=== PATIENT | female | born 1970 | race Caucasian/White ===

== ENCOUNTER 2017-04-09 07:21 | Outpatient (CLI) | payer BC, OTHER ==
[2017-04-09 13:32] LABS: BASOPHILS % (AUTO) 0.5 %; EOSINOPHILS # (AUTO) 0.1 10^3/uL (0.0-0.7); HCT - HEMATOCRIT 39.4 % (37.0-47.0); HGB - HEMOGLOBIN 13.4 g/dL (12.0-16.0); LYMPHOCYTES # (AUTO) 1.6 10^3/uL (1.5-3.5); LYMPHOCYTES % (AUTO) 28.5 %; MEAN CORPUSCULAR HEMOGLOBIN 29.7 pg (27.0-31.0); MEAN CORPUSCULAR HGB CONC 33.9 g/dL (32.0-36.0); MEAN CORPUSCULAR VOLUME 87.7 fL (81.0-99.0); MONOCYTES # (AUTO) 0.5 10^3/uL (0.0-1.0); MONOCYTES % (AUTO) 9.3 %; NEUTROPHILS # (AUTO) 3.4 10^3/uL (1.5-6.6); NEUTROPHILS % (AUTO) 60.7 %; RED CELL DISTRIBUTION WIDTH 14.4 % (12.0-15.0); UNCORRECTED WHITE BLOOD COUNT 5.7 x10^3/uL; WHITE BLOOD COUNT 5.7 x10^3/uL (4.8-10.8)
[2017-04-09 13:57] LABS: ALBUMIN/GLOBULIN RATIO 1.6 (1.0-2.2); BILIRUBIN,TOTAL 0.4 mg/dL (0.2-1.0); BUN - BLOOD UREA NITROGEN 13 mg/dL (6-20); CALCIUM 9.4 mg/dL (8.5-10.3); CARBON DIOXIDE - CO2 27 mmol/L (21-32); CHLORIDE 101 mmol/L (101-111); CHOL/HDL RATIO 1.7 (<4.4); CHOLESTEROL 188 mg/dL; CREATININE 0.7 mg/dL (0.4-1.0); GFR - MDRD 89 (>89); GLUCOSE 104 mg/dL (70-100); HDL CHOLESTEROL 112 mg/dL; LDL/HDL RATIO 0.6 (<4.4); POTASSIUM 3.8 mmol/L (3.5-5.0); SODIUM 136 mmol/L (135-145); TOTAL PROTEIN 7.5 g/dL (6.7-8.2); TRIGLYCERIDES 40 mg/dL; VLDL CHOLESTEROL 8 mg/dL
[2017-04-09 18:49] LABS: HEMOGLOBIN A1C 0.81 g/dL
== END 2017-04-09 07:22 | disposition home or self-care (01) ==
LOC: LAB.R 07:21
PROVIDERS: ATTEND Nurse Practitioner Primary Care
DX: E10.9 Type 1 diabetes mellitus without complications (principal); E03.9 Hypothyroidism, unspecified; E78.2 Mixed hyperlipidemia
CPT/HCPCS: 80053; 80061; 83036; 84443; 85025

== ENCOUNTER 2017-09-13 08:50 | Outpatient (CLI) | payer BC, OTHER ==
--- NOTE | 2017-09-13 11:35 | Ultrasound Report ---
PELVIC ULTRASOUND: 09/13/2017 CLINICAL INDICATION: Pain. TECHNIQUE: Transabdominal pelvic ultrasound performed for global evaluation. Transvaginal pelvic ul trasound performed for detailed evaluation. Real-time scanning performed and static images obtained. FINDINGS: The uterus is anteverted, measuring 8.5 x 6.6 x 5.6 cm. The endometrial echo complex julius ures 12 mm, and a small amount of fluid is seen in the endometrial canal. A posterior submucosal lei omyoma is noted, measuring 2.8 x 2.5 x 2.1 cm. The right ovary measures 4.9 x 3.1 x 2.9 cm, and cont ains a 2.8 x 2.4 x 2.3 cm simple cyst. The left ovary measures 2.7 x 2.5 x 2.1 cm, and appears unrem arkable. A small amount of free fluid is present. IMPRESSION: POSTERIOR SUBMUCOSAL LEIOMYOMA. RIGHT OVARIAN FOLLICLE. JOB #: [id number] EXT JOB #:[id number]
== END 2017-09-13 08:51 | disposition home or self-care (01) ==
LOC: DI 08:50
PROVIDERS: ATTEND Registered Nurse
DX: D25.0 Submucous leiomyoma of uterus (principal); E55.9 Vitamin D deficiency, unspecified; E10.9 Type 1 diabetes mellitus without complications; E03.9 Hypothyroidism, unspecified; E78.2 Mixed hyperlipidemia; Z79.899 Other long term (current) drug therapy
CPT/HCPCS: 76830; 76856; 80061; 82306; 82947

== ENCOUNTER 2017-09-13 17:57 | Outpatient (CLI) | payer BC, OTHER ==
[2017-09-13 14:43] LABS: CHOL/HDL RATIO 1.9 (<4.4); CHOLESTEROL 181 mg/dL; GLUCOSE 148 mg/dL (70-100); HDL CHOLESTEROL 94 mg/dL; LDL/HDL RATIO 0.8 (<4.4); TRIGLYCERIDES 73 mg/dL; VLDL CHOLESTEROL 15 mg/dL
== END 2017-09-13 17:58 | disposition home or self-care (01) ==
LOC: LAB.R 17:57
PROVIDERS: ATTEND Nurse Practitioner Primary Care
DX: E55.9 Vitamin D deficiency, unspecified (principal); E10.9 Type 1 diabetes mellitus without complications; Z79.899 Other long term (current) drug therapy; E03.9 Hypothyroidism, unspecified; E78.2 Mixed hyperlipidemia
CPT/HCPCS: 80061; 82306; 82947

== ENCOUNTER 2017-09-17 09:32 | Outpatient (CLI) | payer BC, OTHER ==
--- NOTE | 2017-09-18 08:21 | XRAY Report ---
RIGHT HAND: 09/17/2017 COMPARISON STUDY: None. INDICATION: Right thumb pain. TECHNIQUE: Two views of the right hand and thumb. FINDINGS: Normal alignment. No evidence of acute fracture. No degenerative changes. Soft tissues appear grossly unremarkable. IMPRESSION: NEGATIVE HAND AND THUMB. JOB #: [id number] EXT JOB #:[id number]
== END 2017-09-17 09:33 | disposition home or self-care (01) ==
LOC: DI 09:32
PROVIDERS: ATTEND Nurse Practitioner Primary Care
DX: M79.644 Pain in right finger(s) (principal)

== ENCOUNTER 2018-01-09 08:00 | Outpatient (CLI) | payer OTHER ==
[2018-01-09 14:31] LABS: BASOPHILS % (AUTO) 0.5 %; EOSINOPHILS # (AUTO) 0.1 10^3/uL (0.0-0.7); EOSINOPHILS % (AUTO) 2.5 %; HGB - HEMOGLOBIN 13.2 g/dL (12.0-16.0); LYMPHOCYTES # (AUTO) 1.8 10^3/uL (1.5-3.5); LYMPHOCYTES % (AUTO) 38.3 %; MEAN CORPUSCULAR HEMOGLOBIN 28.7 pg (27.0-31.0); MEAN CORPUSCULAR HGB CONC 32.8 g/dL (32.0-36.0); MEAN CORPUSCULAR VOLUME 87.6 fL (81.0-99.0); MEAN PLATELET VOLUME 9.1 fL (7.9-10.8); MONOCYTES # (AUTO) 0.5 10^3/uL (0.0-1.0); MONOCYTES % (AUTO) 10.5 %; NEUTROPHILS # (AUTO) 2.2 10^3/uL (1.5-6.6); NEUTROPHILS % (AUTO) 48.2 %; PLT - PLATELET COUNT 281 10^3/uL (130-450); RED BLOOD COUNT 4.61 10^6/uL (4.20-5.40); RED CELL DISTRIBUTION WIDTH 14.6 % (12.0-15.0); WHITE BLOOD COUNT 4.6 x10^3/uL (4.8-10.8)
[2018-01-09 14:44] LABS: ALBUMIN 3.9 g/dL (3.2-5.5); ALBUMIN/GLOBULIN RATIO 1.3 (1.0-2.2); ALKALINE PHOSPHATASE 45 IU/L (42-121); ALT ALANINE AMINOTRANSFERASE 23 IU/L (10-60); AST ASPARTATE AMINOTRANSFERASE 28 IU/L (10-42); BILIRUBIN,TOTAL 0.6 mg/dL (0.2-1.0); BUN - BLOOD UREA NITROGEN 11 mg/dL (6-20); CALCIUM 8.6 mg/dL (8.5-10.3); CARBON DIOXIDE - CO2 26 mmol/L (21-32); CHLORIDE 105 mmol/L (101-111); CHOLESTEROL 164 mg/dL; CREATININE 0.6 mg/dL (0.4-1.0); GFR - MDRD 106 (>89); GLUCOSE 79 mg/dL (70-100); HDL CHOLESTEROL 82 mg/dL; LDL CHOLESTEROL,CALCULATED 71 mg/dL; LDL/HDL RATIO 0.9 (<4.4); SODIUM 136 mmol/L (135-145); TOTAL PROTEIN 6.8 g/dL (6.7-8.2); VLDL CHOLESTEROL 11 mg/dL
[2018-01-09 15:13] LABS: HB2 TOTAL 14.2 g/dL; HEMOGLOBIN A1C % 8.6 % (4.6-6.2)
== END 2018-01-09 08:01 | disposition home or self-care (01) ==
LOC: LAB.R 08:00
PROVIDERS: ATTEND Nurse Practitioner Primary Care
DX: E55.9 Vitamin D deficiency, unspecified (principal); E10.9 Type 1 diabetes mellitus without complications; E78.2 Mixed hyperlipidemia; E03.9 Hypothyroidism, unspecified; Z79.899 Other long term (current) drug therapy
CPT/HCPCS: 80053; 80061; 82306; 83036; 83721; 84443; 85025

== ENCOUNTER 2018-04-02 08:30 | Outpatient (CLI) | payer OTHER ==
[2018-04-02 13:36] LABS: BASOPHILS % (AUTO) 0.3 %; EOSINOPHILS # (AUTO) 0.1 10^3/uL (0.0-0.7); EOSINOPHILS % (AUTO) 1.7 %; HGB - HEMOGLOBIN 15.3 g/dL (12.0-16.0); LYMPHOCYTES # (AUTO) 2.4 10^3/uL (1.5-3.5); LYMPHOCYTES % (AUTO) 40.9 %; MEAN CORPUSCULAR HEMOGLOBIN 29.7 pg (27.0-31.0); MEAN CORPUSCULAR HGB CONC 33.5 g/dL (32.0-36.0); MEAN CORPUSCULAR VOLUME 88.6 fL (81.0-99.0); MONOCYTES # (AUTO) 0.6 10^3/uL (0.0-1.0); MONOCYTES % (AUTO) 9.5 %; NEUTROPHILS # (AUTO) 2.7 10^3/uL (1.5-6.6); NEUTROPHILS % (AUTO) 47.6 %; PLT - PLATELET COUNT 341 10^3/uL (130-450); RED BLOOD COUNT 5.16 10^6/uL (4.20-5.40); RED CELL DISTRIBUTION WIDTH 13.5 % (12.0-15.0); WHITE BLOOD COUNT 5.8 x10^3/uL (4.8-10.8)
[2018-04-02 13:45] LABS: ALBUMIN 4.2 g/dL (3.2-5.5); ALBUMIN/GLOBULIN RATIO 1.1 (1.0-2.2); BILIRUBIN,TOTAL 0.6 mg/dL (0.2-1.0); CALCIUM 9.2 mg/dL (8.5-10.3); CREATININE 0.7 mg/dL (0.4-1.0); TOTAL PROTEIN 7.9 g/dL (6.7-8.2)
[2018-04-02 13:52] LABS: HB2 TOTAL 16.9 g/dL; HEMOGLOBIN A1C 1.11 g/dL; HEMOGLOBIN A1C % 8.2 % (4.6-6.2)
== END 2018-04-02 08:31 | disposition home or self-care (01) ==
LOC: LAB.R 08:30
PROVIDERS: ATTEND Nurse Practitioner Primary Care
DX: E10.9 Type 1 diabetes mellitus without complications (principal); Z79.899 Other long term (current) drug therapy; I10 Essential (primary) hypertension; N92.0 Excessive and frequent menstruation with regular cycle; E03.9 Hypothyroidism, unspecified
CPT/HCPCS: 80053; 83036; 85025

== ENCOUNTER 2018-04-03 08:09 | Outpatient (CLI) | payer OTHER ==
--- NOTE | 2018-04-08 13:02 | Mammography Report ---
DIGITAL SCREENING MAMMOGRAM: 04/03/2018 CLINICAL INDICATION: A 48-year-old for screening. COMPARISON: Diagnostic left mammogram 12/26/2015. TECHNIQUE: Routine CC and MLO projections were obtained of the breasts. FINDINGS: The breasts demonstrate scattered fibroglandular densities bilaterally. Punctate, typically benign calcifications are present. No suspicious masses, clustered microcalcifications, or regions of architectural distortion are identified. IMPRESSION: BENIGN FINDINGS. RECOMMENDATION: Routine annual screening unless otherwise clinically indicated. BI-RADS CATEGORY 2 - BENIGN FINDINGS. STANDARD QUALIFYING STATEMENTS: 1. This examination was reviewed with the aid of Computer-Aided Detection (CAD). 2. A negative or benign imaging report should not delay biopsy if clinically suspicious findings are present. Consider surgical consultation if warranted. More than 5% of cancers are not identified by imaging. 3. Dense breasts may obscure an underlying neoplasm. TD: 04/08/2018 12:44
== END 2018-04-03 08:10 | disposition home or self-care (01) ==
LOC: DI 08:09
PROVIDERS: ATTEND Registered Nurse
DX: Z12.31 Encounter for screening mammogram for malignant neoplasm of breast (principal)
CPT/HCPCS: 77067

== ENCOUNTER 2018-04-03 20:01 | Outpatient (CLI) | payer OTHER ==
--- NOTE | 2018-04-04 11:55 | Ultrasound Report ---
PELVIC ULTRASOUND: 04/03/2018 COMPARISON: Pelvis ultrasound, 09/13/2017. INDICATION: Excessive and frequent menstruation with irregular cycles. TECHNIQUE: Transabdominal pelvic ultrasound performed for global evaluation. Transvaginal pelvic ultrasound performed for detailed evaluation. Real-time scanning performed and static images obtained. FINDINGS: The uterus is heterogeneous. Again seen is a posterior submucosal fibroid measuring 2.9 x 2.3 x 2.0 cm. No appreciable change. The endometrial stripe measures 7 mm. Uterus 7.7 x 6.2 x 5.9 cm. 99 mL. The right ovary measures approximately 2.5 x 1.8 cm. The ovaries are not well evaluated due to body habitus. No free fluid is seen in the pelvis. IMPRESSION: SUBMUCOSAL LEIOMYOMA. NO APPRECIABLE CHANGE. INCOMPLETE EVALUATION OF THE OVARIES. TD: 04/04/2018 11:53 MTDRosalia
== END 2018-04-03 20:02 | disposition home or self-care (01) ==
LOC: DI 20:01
PROVIDERS: ATTEND Registered Nurse
DX: N92.1 Excessive and frequent menstruation with irregular cycle (principal); D25.0 Submucous leiomyoma of uterus
CPT/HCPCS: 76830; 76856

== ENCOUNTER 2018-04-07 08:00 | Outpatient (CLI) | payer OTHER | END 2018-04-07 23:59 | LOC: LAB.R 08:00 | PROVIDERS: ATTEND Obstetrics & Gynecology | DX: N76.0 Acute vaginitis (principal) | CPT/HCPCS: 87480; 87510; 87660 ==

== ENCOUNTER 2018-04-23 07:43 | Outpatient (CLI) | payer OTHER ==
[2018-04-23 08:06] LABS: CREATININE 0.7 mg/dL (0.4-1.0)
[2018-04-23] MEDS ORDERED: IOPAMIDOL-300 50 ML VIAL ONE (08:07)
[2018-04-23] MEDS ORDERED: IOPAMIDOL-300 100 ML VIAL ONE (08:07)
[2018-04-23] MEDS ORDERED: IOPAMIDOL-300 100 ML VIAL IVP ONE (12:54)
[2018-04-23] MEDS ORDERED: IOPAMIDOL-300 50 ML VIAL PO ONE (12:54)
--- NOTE | 2018-04-23 13:37 | CT Report ---
CT ABDOMEN AND PELVIS WITH CONTRAST: 04/23/2018 CLINICAL INDICATION: Pelvic pain. TECHNIQUE: Axial CT images of the abdomen and pelvis were obtained with 100 mL Isovue 300 intravenously as well as oral contrast. COMPARISON: No previous CT is available for comparison. FINDINGS: Limited evaluation of the lung bases is unremarkable. ABDOMEN: The liver demonstrates diffuse decrease in attenuation, compatible with fatty infiltration. No focal hepatic lesion is seen. The patient is status post cholecystectomy. The spleen, pancreas, kidneys and adrenal glands are unremarkable. No bowel dilatation, free gas, or free fluid is present. No abdominal adenopathy is seen. PELVIS: A surgical clip is noted in the anterior pelvis. Sigmoid diverticulosis is present, without CT evidence of diverticulitis. No pelvic free fluid or adenopathy is seen. The pelvic organs appear unremarkable. Osseous structures demonstrate degenerative changes. IMPRESSION: NO EVIDENT ETIOLOGY FOR PATIENT'S PELVIC PAIN. SIGMOID DIVERTICULOSIS. WITHOUT CT EVIDENCE OF DIVERTICULITIS. POSTOPERATIVE CHANGES OF CHOLECYSTECTOMY. FATTY INFILTRATION OF THE LIVER. CT DOSE REDUCTION STATEMENT In accordance with CT protocol optimization, one or more of the following dose reduction techniques were utilized for this exam: automated exposure control, adjustment of mA and/or KV based on patient size, or use of iterative reconstructive technique. TD: 04/23/2018 13:20
== END 2018-04-23 07:44 | disposition home or self-care (01) ==
LOC: DI 07:43
PROVIDERS: ATTEND Obstetrics & Gynecology
DX: R10.2 Pelvic and perineal pain (principal); K57.30 Diverticulosis of large intestine without perforation or abscess without bleeding; K76.0 Fatty (change of) liver, not elsewhere classified
CPT/HCPCS: 36415; 74177; 82565; Q9967

== ENCOUNTER 2018-05-13 16:25 | Outpatient (CLI) | payer OTHER ==
[2018-05-13 16:51] LABS: BASOPHILS # (AUTO) 0.1 10^3/uL (0.0-0.1); BASOPHILS % (AUTO) 1.2 %; EOSINOPHILS # (AUTO) 0.2 10^3/uL (0.0-0.7); HGB - HEMOGLOBIN 14.4 g/dL (12.0-16.0); LYMPHOCYTES # (AUTO) 1.8 10^3/uL (1.5-3.5); LYMPHOCYTES % (AUTO) 33.7 %; MEAN CORPUSCULAR HEMOGLOBIN 30.1 pg (27.0-31.0); MEAN CORPUSCULAR HGB CONC 33.6 g/dL (32.0-36.0); MEAN CORPUSCULAR VOLUME 89.8 fL (81.0-99.0); MEAN PLATELET VOLUME 8.5 fL (7.9-10.8); MONOCYTES # (AUTO) 0.5 10^3/uL (0.0-1.0); NEUTROPHILS # (AUTO) 2.8 10^3/uL (1.5-6.6); NEUTROPHILS % (AUTO) 52.1 %; PLT - PLATELET COUNT 260 10^3/uL (130-450); RED BLOOD COUNT 4.76 10^6/uL (4.20-5.40); RED CELL DISTRIBUTION WIDTH 13.3 % (12.0-15.0); WHITE BLOOD COUNT 5.4 x10^3/uL (4.8-10.8)
[2018-05-13 16:55] LABS: ALBUMIN 4.3 g/dL (3.2-5.5); ALBUMIN/GLOBULIN RATIO 1.3 (1.0-2.2); BILIRUBIN,TOTAL 0.6 mg/dL (0.2-1.0); CALCIUM 9.5 mg/dL (8.5-10.3); CREATININE 0.7 mg/dL (0.4-1.0); TOTAL PROTEIN 7.7 g/dL (6.7-8.2)
[2018-05-13 17:13] LABS: THYROID STIMULATING HORMONE 0.09 uIU/mL (0.34-5.60)
[2018-05-13 17:15] LABS: FREE T4 (FREE THYROXINE) 0.97 ng/dL (0.58-1.64)
[2018-05-13 18:46] LABS: HB2 TOTAL 15.6 g/dL; HEMOGLOBIN A1C 0.88 g/dL; HEMOGLOBIN A1C % 7.3 % (4.6-6.2)
== END 2018-05-13 16:26 | disposition home or self-care (01) ==
LOC: LAB 16:25
PROVIDERS: ATTEND Obstetrics & Gynecology
DX: Z01.812 Encounter for preprocedural laboratory examination (principal); N95.0 Postmenopausal bleeding; D25.9 Leiomyoma of uterus, unspecified
CPT/HCPCS: 36415; 80053; 83036; 84439; 84443; 84481; 85025

== ENCOUNTER 2018-05-14 07:42 | Day surgery (SDC) | payer OTHER ==
--- NOTE | 2018-05-13 19:45 | PREOP HISTORY & PHYSICAL ---
DATE OF ADMISSION: 05/14/2018 Physician: Shakira Vallejo DO IDENTIFICATION: A 48-year-old G3, P-3-0-0-3. HISTORY OF PRESENT ILLNESS: Patient presents today for her scheduled preoperative visit. I first met patient for consultation of irregular vaginal bleeding on 04/07/2018. Patient been noticing that she originally was having irregular spotting and menses. She did have menses every 2-1/2 weeks and noticed some tenderness in her lower abdomen in the midline. When she spots, it appeared to be like thick chocolate. Now, she is having heavy bleeding and clotting. She had this irregular bleeding and clotting for 10 days. It was so bad that she was homebound. She did not have any caryn cramping, dizziness or lightheadedness. Patient has had a workup. On 04/02/2018, white blood count was 5.8, H and H was 15.3 and 45.7, platelets 341. Potassium 3.9, creatinine 0.7, glucose 68, hemoglobin A1c 8.2, AST 30. Pelvic ultrasound 04/01/2018 shows a uterus with a posterior submucosal fibroid measuring 2.9 x 2.3 x 2.0 cm and endometrial stripe measures 7 mm. On 09/13/2017, pelvic ultrasound shows a uterus that was anteverted, measuring 8.5 x 6.6 x 5.6 cm and an endometrial echo complex measures 12 mm. Posterior submucosal leiomyoma measures 2.8 x 2.5 x 2.4 cm. Right ovary measures 4.9 x 3.1 x 2.9 cm with a 2.8 x 2.4 x 2.3 cm simple cyst. Left ovary measures 2.7 x 2.5 x 2.1 cm. Small free fluid. Patient had an endometrial biopsy performed on 04/07/2018, which showed decidualized endometrium without significant hyperplasia, atypia or evidence of chronic endometritis. I discussed with patient her options. She could either conservatively watch her bleeding, especially now since the last time I have seen her she stopped all hormones and is no longer bleeding. Patient also has the option to do medroxyprogesterone acetate withdrawal bleed and conservatively manage that way. Finally, patient had options of surgery in which we can do a hysteroscopy , dilatation and curettage, possible myomectomy all the way to definitive treatment with a hysterectomy. Patient also has the option of doing an endometrial ablation, given her history of heavy irregular bleeding. After discussion, patient has elected to proceed with surgery. She has decided to perform minor surgery. She is in agreement with me that we will proceed to a hysteroscopy, dilatation and curettage, myomectomy, endometrial ablation and possible polypectomy. I was specific with patient regarding endometrial ablation in the face of a more difficult time in diagnosing endometrial cancer in the face of having had an endometrial ablation. I discussed with patient the risks, benefits, alternatives, indications, and expectations of a hysteroscopy, dilatation and curettage, polypectomy, myomectomy and endometrial ablation. Included in our discussion were the risks of hemorrhage, infection and most commonly a uterine perforation. Patient understand that she may develop a polyp in the future, which does not exclude her from a potential hysterectomy. After patient's questions were answered to her satisfaction, she verbalized her desire to proceed with surgery. Consent forms have been signed. Patient otherwise is doing well. She denies any nausea, vomiting, fever, chills , diarrhea, constipation. PAST MEDICAL HISTORY 1. Diabetes type 1. 2. Hypothyroidism. 3. History of bronchitis. 4. Hypertension. 5. Hypercholesterolemia. 6. Anxiety and depression. PAST SURGICAL HISTORY 1. 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 2. Status post tubal sterilization. 3. Left leg tendon. 4. Laparoscopic cholecystectomy. 5. Laparoscopic appendectomy. Patient recalls that when she had her laparoscopic appendectomy 3 years ago at the [facility] in [place], [place], she had some difficulty with extubation. According to her significant other, Ebenezer, patient needed to be reintubated due to a throat closure. Ebenezer was unable to recall exactly what event had occurred causing patient's throat closure. In any event, patient was observed for anesthesia as well as for her appendicitis. 6. Carpal tunnel release. MEDICATIONS 1. Levothyroxine 75 mcg 1 tab p.o. daily. 2. Lisinopril 5 mg 1 tab p.o. daily. 3. Simvastatin. 4. Triseba 20 units every morning. 5. NovoLog sliding scale, usually 2-3 units t.i.d. and usually no more than 10 units per day. Patient's pharmacy of choice is a [facility] order. Otherwise, she does use [facility]. ALLERGIES 1. SULFA IN WHICH SHE HAS BLISTER IN HER MOUTH. 2. VICODIN IN WHICH SHE HAS PRURITUS. SOCIAL HISTORY: Father was just diagnosed with leukemia. She denies any tobacco or illicit drug use. She does drink wine. 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 She does winter in [place]. All 3 children are healthy and doing well. Again, patient's significant other is Ebenezer and they are not . PAST SURGICAL HISTORY: Three-term spontaneous vaginal deliveries with the largest baby weighing 9 pounds 8 ounces. PAST GYNECOLOGICAL HISTORY: All Paps have been normal after her cold knife cone biopsy. Records show that patient had a 06/03/2013 cold knife cone with ECC secondary to RUSS 3. 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 A 03/09/2013 Pap smear was high grade with positive high-risk human papillomavirus. A 08/22/2015 Pap smear and high-risk human papillomavirus were both negative as well as a 09/06/2016 and Pap smears and HPV screening. A 04/23/2018 CT of the abdomen and pelvis shows no evident etiology for patient's pelvic pain. Sigmoid diverticulosis without CT evidence of diverticulitis. Postoperative changes of cholecystectomy, fatty infiltration of the liver. FAMILY HISTORY 1. Mother had a hysterectomy for prolapse. 2. Grandmother had ovarian cancer at about age 50. REVIEW OF SYSTEMS: Negative unless otherwise stated. PHYSICAL EXAMINATION VITAL SIGNS: Weight 140 pounds, height is 61.75 inches, BMI 25.9, blood pressure 132/68. GENERAL: Patient is a well-developed, well-nourished female, in no apparent distress. She is alert and oriented x3. Patient is anxious, but pleasant. CARDIOVASCULAR: Rate is regular. No murmurs or rubs. LUNGS: Lungs are clear to auscultation bilaterally. ABDOMEN: Soft, nontender. Patient does have a continuous glucose monitor that is embedded in her anterior upper abdominal wall. ASSESSMENT AND PLAN 1. A 48-year-old G3, P3-0-0-3. 2. Irregular vaginal bleeding. 3. Perimenopausal symptoms of hot flashes. 4. Anxiety. We will most likely need to give patient anxiolytics on the day of surgery. 5. Patient to continue her normal a.m. dose of Triseba and hold her sliding scale insulin. 6. We will do a trial of estrogen as well as MPA for patient's symptomatic hot flashes. 7. Patient has completed her consent form and will do preop laboratories including thyroid function tests, hemoglobin A1c and a comprehensive panel. 8. We will proceed to aforementioned surgery, specifically for hysteroscopy, dilatation and curettage, myomectomy, endometrial ablation and possible polypectomy. 9. Patient will see me in 2 weeks for routine postoperative check and in about 8 weeks for a followup of her hormone replacement. cc: Ese Grace DNP, ARNP TD: 05/13/2018 18:45 YEE
[2018-05-14] MEDS ORDERED: CELECOXIB 100 MG CAPSULE PO ONE (08:00)
[2018-05-14] MEDS ORDERED: LACTATED RINGERS 1,000 ML IV ONE ×2 (08:14→10:15)
[2018-05-14] MEDS ORDERED: fentaNYL 100 MCG/2 ML VIAL IVP ONE (08:30)
[2018-05-14] MEDS ORDERED: EPINEPHrine 1 MG/ML VIAL IV ONE (08:30)
[2018-05-14] MEDS ORDERED: PROPOFOL 200 MG/20 ML VIAL IVP ONE (08:30)
[2018-05-14] MEDS ORDERED: LIDOCAINE-MPF 2% 5 ML VIAL IM ONE (08:30)
[2018-05-14] MEDS ORDERED: ONDANSETRON 4 MG/2 ML VIAL IVP ONE (08:30)
--- NOTE | 2018-05-14 10:03 | OPERATIVE REPORT ---
Operative Report - Other Other Information/Narrative: Date of Operation: 05/14/2018 Surgeon: Shakira Vallejo DO FACOG Cell Biologist: None Anesthesiologist: Albino Gomez MD Anesthesia: LMA Pre-Op Dx: 1. 48 yo 2. Irregular menstrual bleeding Post-Op Dx: 1. 48 yo 2. Irregular menstrual bleeding 3. Endometrial polyp Procedure: 1. Dilation and curettage 2. Hysteroscopy 3. Polypectomy 4. Endometrial ablation Findings: 1. Small anterior polyp 2. Atrophic endometrium Specimens: Endometrial curetting Drains: None EBL: 0 mL Complications: None OP Note Dictation #: [id number]
[2018-05-14] MEDS ORDERED: INSULIN REGULAR HUMAN 100 UNIT/1 ML 10 ML MDV ONE ×2 (10:39→11:46)
[2018-05-14] MEDS ORDERED: HYDROmorphone 0.5 MG/0.5 ML SYRINGE ONE (10:45)
--- NOTE | 2018-05-14 11:29 | OPERATIVE REPORT ---
DATE OF OPERATION: 05/14/2018 SURGEON: Shakira Vallejo DO, FACOG. HUMAN RESOURCE MANAGER: None. ANESTHESIOLOGIST: Albino Gomez MD ANESTHESIA: LMA. PREOPERATIVE DIAGNOSES: 1. 48-year-old G3, P-3-0-0-3. 2. Irregular menstrual bleeding. POSTOPERATIVE DIAGNOSES: 1. 48-year-old G3, P-3-0-0-3. 2. Irregular menstrual bleeding. 3. Endometrial polyp. PROCEDURES: 1. Dilatation and curettage. 2. Hysteroscopy. 3. Polypectomy. 4. Endometrial ablation. FINDINGS: 1. Small anterior polyp approximately 1 to 1.5 cm in length. 2. Atrophic endometrium. SPECIMENS: Endometrial curettings. DRAINS: None. ESTIMATED BLOOD LOSS: 0 mL. COMPLICATIONS: None. BRIEF HISTORY: Magali presented with complaints of heavy irregular vaginal bleeding. Magali was then seen by the clinic gynecology clinic and was found to have a questionable leiomyoma versus endometrial polyp. She did have an endometrial biopsy, which came back as benign. I discussed with her options including observation and a series of medroxyprogesterone acetate in order to slough off a thickened endometrial lining. Finally, discussion of surgery was performed, and Magali had the option of doing minimally invasive surgery including a dilatation and curettage, and endometrial ablation. The option to this would be to perform a hysterectomy. After I discussed with Magali her options, and their risks and benefits, Magali elected to proceed with minimally invasive surgery. I had a long discussion with Magali regarding the risks, benefits, alternatives, indications and expectations of a dilatation and curettage, hysteroscopy, polypectomy versus myomectomy and endometrial ablation, including in our discussion, the risk of hemorrhage, infection and damage to surrounding organs. With respect to damage to surrounding organs, this most likely would be uterine perforation. Magali also understands that after endometrial ablation, it is more difficult to diagnose an occult endometrial carcinoma due to potential adhesions from the endometrial ablation. After all of Magali's questions were answered to her satisfaction, she verbalized her desire to proceed with the dilatation and curettage, hysteroscopy, polypectomy versus myomectomy and endometrial ablation. OPERATION IN DETAIL: Magali was identified and consented, taken to the operating room where IV access was in place. She was then given sequential compression devices which were placed on her lower extremities and turned on. Magali was then given satisfactory LMA anesthesia as per Dr. Gomez. Antibiotics were not indicated in this case. Magali was then prepped and draped in normal sterile fashion in the lithotomy position using Yellofin stirrups. Her bladder was drained with in-and-out Laws, and approximately 100 mL of urine were obtained. A timeout was then performed, which correctly identified the patient, site of the procedure and the procedures themselves. A single-tooth tenaculum was placed on the anterior lip of the cervix. Magali had a significantly shortened cervix, particularly in the posterior lip. This is consistent with her surgical history of a cold knife cone. Magali was then serially dilated to a #6-[place]. The MyoSure hysteroscopic system was then placed into the uterus. Inspection of the endometrium revealed normal tubal ostia bilaterally, and a small polyp on the lower anterior endometrium. Otherwise, there were no masses, and the endometrium itself appeared to be very atrophic. At this point in time, I used the MyoSure to remove the small anterior polyp. Next, endometrial ablation was performed using the NovaSure. The cervix was dilated to an #8-[place]. The length of the uterus was found to be 4 cm and the width was 3.7 cm. The machine was tested, and wattage was found to be 81. The machine was successfully turned on. After the NovaSure had completed its ablation, all instruments were removed out of the vagina. The cervix and vagina were hemostatically stable. Magali was taken back to the recovery room in stable awake condition. All sponge, lap, and needle counts were correct x2 as per nurse report. Magali will be discharged home later today after postoperative criteria have been met. Magali is to take Aleve and Tylenol for her main form of pain control, and she does have a prescription of oxycodone available to her should she have any breakthrough pain. [facility] for routine postoperative visit. cc: Ese Grace DNP, ARNP TD: 05/14/2018 10:15 YEE
[2018-05-14 12:16] VITALS: BP 145/72
== END 2018-05-14 07:43 | disposition home or self-care (01) ==
LOC: SDS 07:42
PROVIDERS: ATTEND Obstetrics & Gynecology
PROC: 0U5B8ZZ Destruction of Endometrium, Via Natural or Artificial Opening Endoscopic (ICD-10-PCS; 2018-05-14)
PROC: 0UB98ZX Excision of Uterus, Via Natural or Artificial Opening Endoscopic, Diagnostic (ICD-10-PCS; 2018-05-14)
PROC: 0UB98ZX Excision of Uterus, Via Natural or Artificial Opening Endoscopic, Diagnostic (ICD-10-PCS; principal; 2018-05-14 08:45)
PROC: 0UDB7ZX Extraction of Endometrium, Via Natural or Artificial Opening, Diagnostic (ICD-10-PCS; 2018-05-14 08:45)
DX: N92.6 Irregular menstruation, unspecified (principal); N84.0 Polyp of corpus uteri; E10.9 Type 1 diabetes mellitus without complications; I10 Essential (primary) hypertension; E03.9 Hypothyroidism, unspecified; E78.00 Pure hypercholesterolemia, unspecified; Z79.4 Long term (current) use of insulin
CPT/HCPCS: 58563; A9270; J0171; J1170; J1815; J7120

== ENCOUNTER 2018-07-25 08:40 | Outpatient (CLI) | payer OTHER ==
[2018-07-25 12:49] LABS: HB2 TOTAL 15.5 g/dL; HEMOGLOBIN A1C 0.86 g/dL; HEMOGLOBIN A1C % 7.2 % (4.6-6.2)
== END 2018-07-25 08:41 | disposition home or self-care (01) ==
LOC: LAB.R 08:40
PROVIDERS: ATTEND Nurse Practitioner Primary Care
DX: E10.9 Type 1 diabetes mellitus without complications (principal)
CPT/HCPCS: 82947; 83036

== ENCOUNTER 2018-10-30 08:15 | Outpatient (CLI) | payer OTHER ==
[2018-10-30 16:10] LABS: HB2 TOTAL 14.8 g/dL; HEMOGLOBIN A1C 0.81 g/dL; HEMOGLOBIN A1C % 7.2 % (4.6-6.2)
== END 2018-10-30 23:59 | disposition home or self-care (01) ==
LOC: LAB.R 08:15
PROVIDERS: ATTEND Nurse Practitioner Primary Care
DX: E10.9 Type 1 diabetes mellitus without complications (principal)
CPT/HCPCS: 82947; 83036

== ENCOUNTER 2019-01-21 08:51 | Outpatient (CLI) | payer OTHER ==
[2019-01-21 13:50] LABS: BASOPHILS % (AUTO) 0.7 %; EOSINOPHILS # (AUTO) 0.2 10^3/uL (0.0-0.7); EOSINOPHILS % (AUTO) 2.8 %; HGB - HEMOGLOBIN 14.6 g/dL (12.0-16.0); LYMPHOCYTES # (AUTO) 1.8 10^3/uL (1.5-3.5); MEAN CORPUSCULAR HEMOGLOBIN 31.1 pg (27.0-31.0); MEAN CORPUSCULAR HGB CONC 34.2 g/dL (32.0-36.0); MEAN CORPUSCULAR VOLUME 91.1 fL (81.0-99.0); MEAN PLATELET VOLUME 9.1 fL (7.9-10.8); MONOCYTES # (AUTO) 0.5 10^3/uL (0.0-1.0); MONOCYTES % (AUTO) 7.9 %; NEUTROPHILS # (AUTO) 3.3 10^3/uL (1.5-6.6); NEUTROPHILS % (AUTO) 57.6 %; PLT - PLATELET COUNT 270 10^3/uL (130-450); RED BLOOD COUNT 4.69 10^6/uL (4.20-5.40); RED CELL DISTRIBUTION WIDTH 12.6 % (12.0-15.0); WHITE BLOOD COUNT 5.8 x10^3/uL (4.8-10.8)
[2019-01-21 14:08] LABS: ALBUMIN 3.9 g/dL (3.2-5.5); ALBUMIN/GLOBULIN RATIO 1.3 (1.0-2.2); ALKALINE PHOSPHATASE 51 IU/L (42-121); ALT ALANINE AMINOTRANSFERASE 26 IU/L (10-60); AST ASPARTATE AMINOTRANSFERASE 25 IU/L (10-42); BILIRUBIN,TOTAL 0.8 mg/dL (0.2-1.0); BUN - BLOOD UREA NITROGEN 11 mg/dL (6-20); CALCIUM 8.7 mg/dL (8.5-10.3); CARBON DIOXIDE - CO2 29 mmol/L (21-32); CHLORIDE 101 mmol/L (101-111); CHOL/HDL RATIO 1.9 (<4.4); CHOLESTEROL 151 mg/dL; CREATININE 0.6 mg/dL (0.4-1.0); GFR - MDRD 106 (>89); GLUCOSE 97 mg/dL (70-100); HDL CHOLESTEROL 79 mg/dL; SODIUM 137 mmol/L (135-145); TOTAL PROTEIN 6.8 g/dL (6.7-8.2)
[2019-01-21 14:11] LABS: HB2 TOTAL 15.8 g/dL; HEMOGLOBIN A1C 0.9 g/dL; HEMOGLOBIN A1C % 7.4 % (4.6-6.2)
[2019-01-21 14:26] LABS: LDL CHOLESTEROL,DIRECT 76 mg/dL
== END 2019-01-21 23:59 | disposition home or self-care (01) ==
LOC: LAB.R 08:51
PROVIDERS: ATTEND Nurse Practitioner Primary Care
DX: R63.5 Abnormal weight gain (principal); F41.8 Other specified anxiety disorders; E55.9 Vitamin D deficiency, unspecified; E03.9 Hypothyroidism, unspecified; E78.2 Mixed hyperlipidemia; E10.9 Type 1 diabetes mellitus without complications
CPT/HCPCS: 80053; 80061; 82043; 82306; 83036; 83721; 84443; 85025

== ENCOUNTER 2019-04-16 09:38 | Outpatient (CLI) | payer OTHER ==
[2019-04-16 10:09] LABS: CALCIUM 9.6 mg/dL (8.5-10.3); CREATININE 0.7 mg/dL (0.4-1.0)
[2019-04-16 10:18] LABS: HB2 TOTAL 15.3 g/dL; HEMOGLOBIN A1C 0.89 g/dL; HEMOGLOBIN A1C % 7.5 % (4.6-6.2)
== END 2019-04-16 09:39 | disposition home or self-care (01) ==
LOC: LAB 09:38
PROVIDERS: ATTEND Nurse Practitioner
DX: E10.9 Type 1 diabetes mellitus without complications (principal)
CPT/HCPCS: 36415; 80048; 83036

== ENCOUNTER 2019-07-09 06:07 | Day surgery (SDC) | payer OTHER ==
[2019-07-09] MEDS ORDERED: LACTATED RINGERS 1,000 ML IV ONE (07:10)
[2019-07-09] MEDS ORDERED: DEXTROSE 10% 0 ML IV ONE (07:28)
[2019-07-09] MEDS ORDERED: MIDAZOLAM 2 MG/2 ML VIAL IVP ONE (07:38)
[2019-07-09] MEDS ORDERED: fentaNYL 250 MCG/5 ML VIAL IVP ONE (07:38)
[2019-07-09 08:56] VITALS: BP 124/98
== END 2019-07-09 06:08 | disposition home or self-care (01) ==
LOC: SDS 06:07
PROVIDERS: ATTEND Surgery
PROC: 0DJD8ZZ Inspection of Lower Intestinal Tract, Via Natural or Artificial Opening Endoscopic (ICD-10-PCS; principal; 2019-07-09 07:30)
DX: Z12.11 Encounter for screening for malignant neoplasm of colon (principal); K64.8 Other hemorrhoids; I10 Essential (primary) hypertension; E10.9 Type 1 diabetes mellitus without complications; Z79.4 Long term (current) use of insulin; Z79.899 Other long term (current) drug therapy; Z80.9 Family history of malignant neoplasm, unspecified; Z77.22 Contact with and (suspected) exposure to environmental tobacco smoke (acute) (chronic)
CPT/HCPCS: 45378; J3010; J7120

== ENCOUNTER 2019-08-07 09:17 | Outpatient (CLI) | payer OTHER ==
[2019-08-07 09:45] LABS: CALCIUM 9.5 mg/dL (8.5-10.3); CREATININE 0.9 mg/dL (0.4-1.0)
[2019-08-07 09:46] LABS: HEMOGLOBIN A1C 0.96 g/dL; HEMOGLOBIN A1C % 7.6 % (4.6-6.2)
== END 2019-08-07 09:18 | disposition home or self-care (01) ==
LOC: LAB 09:17
PROVIDERS: ATTEND Nurse Practitioner
DX: E10.9 Type 1 diabetes mellitus without complications (principal)
CPT/HCPCS: 36415; 80048; 83036

== ENCOUNTER 2020-01-25 07:23 | Outpatient (CLI) | payer OTHER ==
[2020-01-25 07:46] LABS: CREATININE 0.7 mg/dL (0.4-1.0)
[2020-01-25 07:55] LABS: HB2 TOTAL 14.4 g/dL; HEMOGLOBIN A1C 0.91 g/dL; HEMOGLOBIN A1C % 7.9 % (4.6-6.2)
== END 2020-01-25 07:24 | disposition home or self-care (01) ==
LOC: LAB 07:23
PROVIDERS: ATTEND Nurse Practitioner
DX: E10.9 Type 1 diabetes mellitus without complications (principal)
CPT/HCPCS: 36415; 80048; 83036

== ENCOUNTER 2020-04-22 07:45 | Outpatient (CLI) | payer OTHER ==
[2020-04-22 08:08] LABS: BASOPHILS % (AUTO) 0.6 %; EOSINOPHILS # (AUTO) 0.1 10^3/uL (0.0-0.7); EOSINOPHILS % (AUTO) 2.7 %; HGB - HEMOGLOBIN 14.1 g/dL (12.0-16.0); LYMPHOCYTES % (AUTO) 39.1 %; MEAN CORPUSCULAR HEMOGLOBIN 29.5 pg (27.0-31.0); MEAN CORPUSCULAR HGB CONC 32.7 g/dL (32.0-36.0); MEAN CORPUSCULAR VOLUME 90.2 fL (81.0-99.0); MEAN PLATELET VOLUME 10.4 fL (7.9-10.8); MONOCYTES # (AUTO) 0.5 10^3/uL (0.0-1.0); MONOCYTES % (AUTO) 9.7 %; NEUTROPHILS # (AUTO) 2.5 10^3/uL (1.5-6.6); NEUTROPHILS % (AUTO) 47.7 %; PLT - PLATELET COUNT 278 10^3/uL (130-450); RED BLOOD COUNT 4.78 10^6/uL (4.20-5.40); RED CELL DISTRIBUTION WIDTH 12.2 % (12.0-15.0); WHITE BLOOD COUNT 5.1 x10^3/uL (4.8-10.8)
[2020-04-22 08:23] LABS: ALBUMIN/GLOBULIN RATIO 1.2 (1.0-2.2); ALKALINE PHOSPHATASE 67 IU/L (42-121); ALT ALANINE AMINOTRANSFERASE 32 IU/L (10-60); AST ASPARTATE AMINOTRANSFERASE 38 IU/L (10-42); BILIRUBIN,TOTAL 1.1 mg/dL (0.2-1.0); BUN - BLOOD UREA NITROGEN 16 mg/dL (6-20); CALCIUM 9.1 mg/dL (8.5-10.3); CARBON DIOXIDE - CO2 29 mmol/L (21-32); CHLORIDE 102 mmol/L (101-111); CHOL/HDL RATIO 1.8 (<4.4); CHOLESTEROL 164 mg/dL; CREATININE 0.7 mg/dL (0.4-1.0); GLUCOSE 164 mg/dL (70-100); HB2 TOTAL 14.8 g/dL; HDL CHOLESTEROL 90 mg/dL; HEMOGLOBIN A1C 0.84 g/dL; HEMOGLOBIN A1C % 7.3 % (4.6-6.2); SODIUM 139 mmol/L (135-145); TOTAL PROTEIN 7.3 g/dL (6.7-8.2)
== END 2020-04-22 07:46 | disposition home or self-care (01) ==
LOC: LAB 07:45
PROVIDERS: ATTEND Nurse Practitioner
DX: E10.9 Type 1 diabetes mellitus without complications (principal); N92.0 Excessive and frequent menstruation with regular cycle; I10 Essential (primary) hypertension; Z79.899 Other long term (current) drug therapy; E55.9 Vitamin D deficiency, unspecified; E03.9 Hypothyroidism, unspecified; E78.2 Mixed hyperlipidemia
CPT/HCPCS: 36415; 80053; 80061; 83036; 83721; 84443; 85025

== ENCOUNTER 2020-04-26 09:53 | Outpatient (CLI) | payer OTHER ==
--- NOTE | 2020-04-26 17:14 | XRAY Report ---
Reason: RIGHT LATERAL EPICONDLITIS Procedure Date: 04/26/2020 Accession Number: [id number] / [id number] Procedure: WCP - Elbow 3 View RT CPT Code: Final Report FULL RESULT: PROCEDURE: Elbow 3 View RT INDICATIONS: RIGHT LATERAL EPICONDLITIS TECHNIQUE: 3 views of the elbow were acquired. COMPARISON: None FINDINGS: Bones: No fractures or dislocations. No suspicious bony lesions. Soft tissues: No elbow joint effusion. No suspicious soft tissue calcifications. IMPRESSION: Unremarkable exam. Reviewed by: Vicky De La Rosa MD on 04/26/2020 10:53 AM PDT Approved by: Vicky De La Rosa MD on 04/26/2020 10:53 AM PDT Station ID: [id number]
== END 2020-04-26 23:59 | disposition home or self-care (01) ==
LOC: DI.WCP 09:53
PROVIDERS: ATTEND Nurse Practitioner
DX: M77.11 Lateral epicondylitis, right elbow (principal)

== ENCOUNTER 2020-07-26 07:48 | Outpatient (CLI) | payer OTHER ==
[2020-07-26 08:20] LABS: CALCIUM 9.2 mg/dL (8.5-10.3); CREATININE 0.7 mg/dL (0.4-1.0)
[2020-07-26 13:16] LABS: HEMOGLOBIN A1c% 7.6 % (4.27-6.07)
== END 2020-07-26 07:49 | disposition home or self-care (01) ==
LOC: LAB 07:48
PROVIDERS: ATTEND Nurse Practitioner
DX: E10.9 Type 1 diabetes mellitus without complications (principal)
CPT/HCPCS: 36415; 80048; 82043; 83036

== ENCOUNTER 2020-08-22 09:34 | Outpatient (CLI) | payer OTHER ==
--- NOTE | 2020-08-22 15:19 | Mammography Report ---
BILATERAL DIGITAL SCREENING MAMMOGRAM 3D/2D: 08/22/2020 CLINICAL: Routine screening. Comparison is made to exams dated: 04/03/2018 mammogram, 12/26/2015 mammogram - [facility], 03/23/2016 ultrasound, and 03/23/2016 mammogram - [facility]. There are scattered fibroglan dular elements in both breasts. No significant masses, calcifications, or other findings are seen in either breast. There has been no significant interval change. IMPRESSION: NEGATIVE There is no mammographic evidence of malignancy. A 1 year screening mammogram is recommended. This exam was interpreted at Station ID: [id number]. NOTE: For mammograms, a report in lay terms will be sent to the patient. Approximately 15% of breast malignancies will not be visualized mammographically. In the management of a palpable breast mass, a negative mammogram must not discourage biopsy of a clinically suspicious lesion. Electronically Signed By: Catarino Velasquez M.D. ddp/penrad:08/22/2020 11:03:11 ACR BI-RADS Category 1: Negative 3341F PARENCHYMAL PATTERN: (A) - The breast(s) demonstrate(s) scattered fibroglandular densities. BI-RADS CATEGORY: (1) - 1 RECOMMENDATION: (ANNUAL) - Recommend routine annual screening mammography. [id number] 1 year screening LATERALITY: (B)
== END 2020-08-22 09:35 | disposition home or self-care (01) ==
LOC: DI.N 09:34
PROVIDERS: ATTEND Nurse Practitioner
DX: Z12.31 Encounter for screening mammogram for malignant neoplasm of breast (principal)
CPT/HCPCS: 77063; 77067

== ENCOUNTER 2021-01-05 08:07 | Outpatient (CLI) | payer OTHER ==
[2021-01-05 08:41] LABS: ALBUMIN 4.3 g/dL (3.2-5.5); ALBUMIN/GLOBULIN RATIO 1.5 (1.0-2.2); BILIRUBIN,TOTAL 0.8 mg/dL (0.2-1.0); CREATININE 0.7 mg/dL (0.4-1.0); TOTAL PROTEIN 7.1 g/dL (6.7-8.2)
== END 2021-01-05 08:08 | disposition home or self-care (01) ==
LOC: LAB 08:07
PROVIDERS: ATTEND Nurse Practitioner
DX: E10.9 Type 1 diabetes mellitus without complications (principal)
CPT/HCPCS: 36415; 80053; 83036

== ENCOUNTER 2021-04-11 08:06 | Outpatient (CLI) | payer OTHER ==
[2021-04-11 08:59] LABS: BASOPHILS % (AUTO) 0.4 %; EOSINOPHILS # (AUTO) 0.2 10^3/uL (0.0-0.7); EOSINOPHILS % (AUTO) 3.3 %; HCT - HEMATOCRIT 42.1 % (37.0-47.0); HGB - HEMOGLOBIN 14.2 g/dL (12.0-16.0); LYMPHOCYTES # (AUTO) 1.8 10^3/uL (1.5-3.5); LYMPHOCYTES % (AUTO) 36.2 %; MEAN CORPUSCULAR HEMOGLOBIN 30.9 pg (27.0-31.0); MEAN CORPUSCULAR HGB CONC 33.7 g/dL (32.0-36.0); MEAN CORPUSCULAR VOLUME 91.7 fL (81.0-99.0); MONOCYTES # (AUTO) 0.6 10^3/uL (0.0-1.0); MONOCYTES % (AUTO) 11.4 %; NEUTROPHILS # (AUTO) 2.4 10^3/uL (1.5-6.6); NEUTROPHILS % (AUTO) 48.7 %; PLT - PLATELET COUNT 265 10^3/uL (130-450); RED BLOOD COUNT 4.59 10^6/uL (4.20-5.40); RED CELL DISTRIBUTION WIDTH 12.1 % (12.0-15.0); WHITE BLOOD COUNT 4.8 x10^3/uL (4.8-10.8)
[2021-04-11 09:29] LABS: THYROID STIMULATING HORMONE 0.49 uIU/mL (0.34-5.60)
[2021-04-11 10:22] LABS: ALBUMIN 4.4 g/dL (3.2-5.5); ALBUMIN/GLOBULIN RATIO 1.5 (1.0-2.2); ALKALINE PHOSPHATASE 57 IU/L (42-121); ALT ALANINE AMINOTRANSFERASE 30 IU/L (10-60); AST ASPARTATE AMINOTRANSFERASE 32 IU/L (10-42); BILIRUBIN,TOTAL 0.7 mg/dL (0.2-1.0); BUN - BLOOD UREA NITROGEN 15 mg/dL (6-20); CALCIUM 9.8 mg/dL (8.5-10.3); CARBON DIOXIDE - CO2 28 mmol/L (21-32); CHLORIDE 102 mmol/L (101-111); CHOL/HDL RATIO 2.2 (<4.4); CHOLESTEROL 193 mg/dL; CREATININE 0.8 mg/dL (0.4-1.0); GFR - MDRD 75 (>89); GLUCOSE 152 mg/dL (70-100); HDL CHOLESTEROL 88 mg/dL; POTASSIUM 4.5 mmol/L (3.5-5.0); SODIUM 138 mmol/L (135-145); TOTAL PROTEIN 7.3 g/dL (6.7-8.2); TRIGLYCERIDES 24 mg/dL
[2021-04-11 12:55] LABS: ESTIMATED AVERAGE GLUCOSE 157 mg/dL (70-100); HEMOGLOBIN A1c% 7.1 % (4.27-6.07)
[2021-04-11 14:18] LABS: CREATININE,URINE 27.1 mg/dL; MICROALBUM/CREATININE RATIO,UR 36.9 ug/mg (<30.0)
== END 2021-04-11 08:07 | disposition home or self-care (01) ==
LOC: LAB 08:06
PROVIDERS: ATTEND Family Medicine
DX: E10.9 Type 1 diabetes mellitus without complications (principal)
CPT/HCPCS: 36415; 80053; 80061; 82043; 82570; 83036; 83721; 84443; 85025

== ENCOUNTER 2021-08-27 09:48 | Outpatient (CLI) | payer OTHER ==
[2021-08-27 10:13] LABS: BASOPHILS % (AUTO) 0.5 %; EOSINOPHILS # (AUTO) 0.1 10^3/uL (0.0-0.7); HCT - HEMATOCRIT 43.4 % (37.0-47.0); HGB - HEMOGLOBIN 14.3 g/dL (12.0-16.0); LYMPHOCYTES # (AUTO) 1.8 10^3/uL (1.5-3.5); LYMPHOCYTES % (AUTO) 32.8 %; MEAN CORPUSCULAR HEMOGLOBIN 30.2 pg (27.0-31.0); MEAN CORPUSCULAR HGB CONC 32.9 g/dL (32.0-36.0); MEAN CORPUSCULAR VOLUME 91.6 fL (81.0-99.0); MEAN PLATELET VOLUME 10.4 fL (7.9-10.8); MONOCYTES # (AUTO) 0.5 10^3/uL (0.0-1.0); MONOCYTES % (AUTO) 9.5 %; NEUTROPHILS # (AUTO) 3.1 10^3/uL (1.5-6.6); PLT - PLATELET COUNT 263 10^3/uL (130-450); RED BLOOD COUNT 4.74 10^6/uL (4.20-5.40); RED CELL DISTRIBUTION WIDTH 12.1 % (12.0-15.0); WHITE BLOOD COUNT 5.6 x10^3/uL (4.8-10.8)
[2021-08-27 10:29] LABS: ALBUMIN 4.1 g/dL (3.2-5.5); ALBUMIN/GLOBULIN RATIO 1.5 (1.0-2.2); ALKALINE PHOSPHATASE 58 IU/L (42-121); ALT ALANINE AMINOTRANSFERASE 33 IU/L (10-60); AST ASPARTATE AMINOTRANSFERASE 34 IU/L (10-42); BILIRUBIN,TOTAL 0.9 mg/dL (0.2-1.0); BUN - BLOOD UREA NITROGEN 19 mg/dL (6-20); CALCIUM 9.2 mg/dL (8.5-10.3); CARBON DIOXIDE - CO2 28 mmol/L (21-32); CHLORIDE 98 mmol/L (101-111); CHOL/HDL RATIO 1.9 (<4.4); CHOLESTEROL 209 mg/dL; CREATININE 0.8 mg/dL (0.4-1.0); GFR - MDRD 75 (>89); GLUCOSE 138 mg/dL (70-100); HDL CHOLESTEROL 108 mg/dL; POTASSIUM 4.5 mmol/L (3.5-5.0); SODIUM 135 mmol/L (135-145); TOTAL PROTEIN 6.9 g/dL (6.7-8.2); TRIGLYCERIDES 39 mg/dL
[2021-08-27 11:07] LABS: ESTIMATED AVERAGE GLUCOSE 169 mg/dL (70-100); HEMOGLOBIN A1c% 7.5 % (4.27-6.07)
== END 2021-08-27 09:49 | disposition home or self-care (01) ==
LOC: LAB 09:48
PROVIDERS: ATTEND Family Medicine
DX: E10.9 Type 1 diabetes mellitus without complications (principal)
CPT/HCPCS: 36415; 80053; 80061; 83036; 83721; 85025

== ENCOUNTER 2022-05-16 07:45 | Outpatient (CLI) | payer OTHER ==
[2022-05-16 07:57] LABS: BASOPHILS % (AUTO) 0.4 %; EOSINOPHILS # (AUTO) 0.1 10^3/uL (0.0-0.7); EOSINOPHILS % (AUTO) 2.6 %; HCT - HEMATOCRIT 41.5 % (37.0-47.0); HGB - HEMOGLOBIN 13.8 g/dL (12.0-16.0); LYMPHOCYTES # (AUTO) 2.1 10^3/uL (1.5-3.5); MEAN CORPUSCULAR HEMOGLOBIN 30.9 pg (27.0-31.0); MEAN CORPUSCULAR HGB CONC 33.3 g/dL (32.0-36.0); MEAN CORPUSCULAR VOLUME 92.8 fL (81.0-99.0); MEAN PLATELET VOLUME 10.1 fL (7.9-10.8); MONOCYTES # (AUTO) 0.4 10^3/uL (0.0-1.0); MONOCYTES % (AUTO) 9.3 %; NEUTROPHILS % (AUTO) 42.5 %; PLT - PLATELET COUNT 251 10^3/uL (130-450); RED BLOOD COUNT 4.47 10^6/uL (4.20-5.40); RED CELL DISTRIBUTION WIDTH 12.7 % (12.0-15.0); WHITE BLOOD COUNT 4.6 x10^3/uL (4.8-10.8)
[2022-05-16 08:21] LABS: ALBUMIN 3.7 g/dL (3.2-5.5); ALBUMIN/GLOBULIN RATIO 1.2 (1.0-2.2); ALKALINE PHOSPHATASE 42 IU/L (42-121); ALT ALANINE AMINOTRANSFERASE 24 IU/L (10-60); AST ASPARTATE AMINOTRANSFERASE 23 IU/L (10-42); BILIRUBIN,TOTAL 0.7 mg/dL (0.2-1.0); BUN - BLOOD UREA NITROGEN 16 mg/dL (6-20); CALCIUM 8.9 mg/dL (8.5-10.3); CARBON DIOXIDE - CO2 28 mmol/L (21-32); CHLORIDE 100 mmol/L (101-111); CHOLESTEROL 205 mg/dL; CREATININE 0.8 mg/dL (0.4-1.0); GFR - MDRD 75 (>89); GLUCOSE 143 mg/dL (70-100); HDL CHOLESTEROL 102 mg/dL; LDL CHOLESTEROL,CALCULATED 95 mg/dL; LDL/HDL RATIO 0.9 (<4.4); POTASSIUM 4.1 mmol/L (3.5-5.0); SODIUM 138 mmol/L (135-145); TOTAL PROTEIN 6.9 g/dL (6.7-8.2); TRIGLYCERIDES 40 mg/dL; VLDL CHOLESTEROL 8 mg/dL
[2022-05-16 11:29] LABS: ESTIMATED AVERAGE GLUCOSE 160 mg/dL (70-100); HEMOGLOBIN A1c% 7.2 % (4.27-6.07)
== END 2022-05-16 07:46 | disposition home or self-care (01) ==
LOC: LAB 07:45
PROVIDERS: ATTEND Nurse Practitioner Family
DX: E10.9 Type 1 diabetes mellitus without complications (principal)
CPT/HCPCS: 36415; 80053; 80061; 83036; 83721; 85025

== ENCOUNTER 2023-05-29 07:32 | Outpatient (CLI) | payer OTHER, MEDICAID ==
[2023-05-29 07:51] LABS: BASOPHILS % (AUTO) 0.6 %; EOSINOPHILS # (AUTO) 0.2 10^3/uL (0.0-0.7); EOSINOPHILS % (AUTO) 4.7 %; HCT - HEMATOCRIT 45.4 % (37.0-47.0); LYMPHOCYTES % (AUTO) 39.5 %; MEAN CORPUSCULAR HEMOGLOBIN 30.1 pg (27.0-31.0); MEAN PLATELET VOLUME 10.4 fL (7.9-10.8); MONOCYTES # (AUTO) 0.5 10^3/uL (0.0-1.0); MONOCYTES % (AUTO) 9.7 %; NEUTROPHILS # (AUTO) 2.3 10^3/uL (1.5-6.6); NEUTROPHILS % (AUTO) 45.3 %; PLT - PLATELET COUNT 276 10^3/uL (130-450); RED BLOOD COUNT 4.99 10^6/uL (4.20-5.40); WHITE BLOOD COUNT 5.1 x10^3/uL (4.8-10.8)
[2023-05-29 08:05] LABS: ALBUMIN 3.7 g/dL (3.2-5.5); ALKALINE PHOSPHATASE 61 IU/L (42-121); ALT ALANINE AMINOTRANSFERASE 23 IU/L (10-60); AST ASPARTATE AMINOTRANSFERASE 24 IU/L (10-42); BILIRUBIN,TOTAL 0.6 mg/dL (0.2-1.0); BUN - BLOOD UREA NITROGEN 23 mg/dL (6-20); CARBON DIOXIDE - CO2 32 mmol/L (21-32); CHLORIDE 99 mmol/L (101-111); CHOL/HDL RATIO 2.3 (<4.4); CHOLESTEROL 238 mg/dL; CREATININE 0.8 mg/dL (0.4-1.0); GFR - MDRD 74 (>89); GLUCOSE 228 mg/dL (70-100); HDL CHOLESTEROL 102 mg/dL; LDL CHOLESTEROL,CALCULATED 125 mg/dL; LDL/HDL RATIO 1.2 (<4.4); POTASSIUM 4.5 mmol/L (3.5-5.0); SODIUM 137 mmol/L (135-145); TOTAL PROTEIN 7.5 g/dL (6.7-8.2); TRIGLYCERIDES 53 mg/dL; VLDL CHOLESTEROL 11 mg/dL
[2023-05-29 08:17] LABS: THYROID STIMULATING HORMONE 3.01 uIU/mL (0.34-5.60)
[2023-05-29 10:45] LABS: ESTIMATED AVERAGE GLUCOSE 160 mg/dL (70-100); HEMOGLOBIN A1c% 7.2 % (4.27-6.07)
== END 2023-05-29 07:33 | disposition home or self-care (01) ==
LOC: LAB 07:32
PROVIDERS: ATTEND Nurse Practitioner Family
DX: E03.9 Hypothyroidism, unspecified (principal); E10.9 Type 1 diabetes mellitus without complications; I10 Essential (primary) hypertension; E78.2 Mixed hyperlipidemia
CPT/HCPCS: 36415; 80053; 80061; 83036; 83721; 84443; 85025